=== PATIENT | male | born 2000 | race Hispanic/Latino ===

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

== ENCOUNTER 2022-04-08 14:36 | Emergency (ER) | payer OTHER, SELFPAY ==
[2022-04-08 15:23] LABS: Protime INR 0.98
[2022-04-08 15:32] LABS: BUN Blood Urea Nitrogen 12 mg/dL (7-18); Bicarbonate 29 mmol/L (21-32); Glucose Level 116 mg/dL (74-106); Potassium 3.6 mmol/L (3.5-5.1); Sodium Level 138 mmol/L (136-145)
[2022-04-08 15:39] LABS: Absolute Lymphocytes (CBC) 1.8 K/uL (0.7-4.9); Hematocrit 46.3 % (39.6-49.0); Lymphocytes % 27.4 % (15.3-44.8); MPV 7.5 fL (7.6-11.3); RBC Red Blood Cell Count 5.15 M/uL (4.33-5.43)
[2022-04-08 15:57] LABS: Troponin High Sensitivity < 3.0 pg/mL (<58.9)
--- NOTE | 2022-04-08 16:46 | EDPHYS ---
Physician Documentation [facility] Name: Prashant Glynn Age: 21 yrs Sex: Male : 2000 Arrival Date: 04/08/2022 Time: 14:37 Bed 19 Private MD: ED Physician José Miguel Benitez HPI: 04/08 15:45 This 21 yrs old Male presents to ER via Ambulatory with complaints of Cough, jh7 Chest Pain. 15:45 The patient or guardian reports cough, that is intermittent. Onset: The jh7 symptoms/episode began/occurred 3 week(s) ago. Patient complains of intermittent chest pain and cough for 3 weeks. He rates the pain at worst is a 5 out of 10. States that there are no alleviating or aggravating factors. States that he also felt dizzy this morning, but that it was likely due to him not eating. States he feels like he is congested. Also reports that he recently got over bronchitis.. Historical: - Allergies: 14:55 No Known Allergies; iw - Home Meds: 14:55 None [Active]; iw - PMHx: 14:55 None; iw - Immunization history:: Client reports receiving the 2nd dose of the Covid vaccine. - Social history:: Smoking status: Patient denies any tobacco usage or history of. ROS: 15:45 Constitutional: Negative for fever, chills, and weight loss, ENT: Negative for injury, jh7 pain, and discharge, Neck: Negative for injury, pain, and swelling, Respiratory: Negative for shortness of breath, cough, wheezing, and pleuritic chest pain, Abdomen/GI: Negative for abdominal pain, nausea, vomiting, diarrhea, and constipation, Back: Negative for injury and pain, Skin: Negative for injury, rash, and discoloration, Neuro: Negative for headache, weakness, numbness, tingling, and seizure, Psych: Negative for depression, anxiety, suicide ideation, homicidal ideation, and hallucinations. 15:45 Cardiovascular: Positive for chest pain. 15:45 All other systems are negative. Exam: 15:45 Constitutional: This is a well developed, well nourished patient who is awake, alert, jh7 and in no acute distress. Cardiovascular: Regular rate and rhythm with a normal S1 and S2. No gallops, murmurs, or rubs. Normal PMI, no JVD. No pulse deficits. Respiratory: Lungs have equal breath sounds bilaterally, clear to auscultation and percussion. No rales, rhonchi or wheezes noted. No increased work of breathing, no retractions or nasal flaring. Skin: Warm, dry with normal turgor. Normal color with no rashes, no lesions, and no evidence of cellulitis. Vital Signs: 14:52 BP 154 / 96; Pulse 101; Resp 18 S; Temp 99.1(TE); Pulse Ox 100% on R/A; Weight 68.04 iw kg; Height 5 ft. 10 in. (177.80 cm); 16:10 BP 147 / 94; Pulse 93; Resp 18; Pulse Ox 100% on R/A; billings 14:52 Body Mass Index 21.52 (68.04 kg, 177.80 cm) iw MDM: 15:35 Patient medically screened. 7 17:10 Differential Diagnosis: Bronchitis Upper Respiratory Infection Viral Syndrome jh7 Pneumonia. Data reviewed: vital signs, nurses notes, lab test result(s), EKG, radiologic studies, plain films. Data interpreted: Pulse oximetry: is 100 %. Interpretation: normal. Test interpretation: by ED physician or midlevel provider: ECG, plain radiologic studies. Counseling: I had a detailed discussion with the patient and/or guardian regarding: the historical points, exam findings, and any diagnostic results supporting the discharge/admit diagnosis. Special discussion: I discussed with the patient/guardian in detail that at this point there is no indication for admission to the hospital. It is understood, however, that if the symptoms persist or worsen the patient needs to return immediately for re-evaluation. ED course: The patient remained hemodynamically stable throughout the ER visit. He denied any pain at the time of discharge. He was advised to follow-up with his PCP, and if his symptoms return, or worsen that he is to return to the ER. The patient understood the plan of care.. 04/08 14:54 Order name: Basic Metabolic Panel; Complete Time: 16:42 iw 04/08 14:54 Order name: CBC with Diff; Complete Time: 15:43 iw 04/08 14:54 Order name: PT-INR; Complete Time: 15:42 iw 04/08 14:54 Order name: Troponin HS; Complete Time: 16:42 iw 04/08 14:54 Order name: XRAY Chest (1 view); Complete Time: 17:10 04/08 14:55 Order name: COVID-19/FLU A+B (Document "Date of Onset" if Symptomatic) 04/08 14:54 Order name: EKG; Complete Time: 14:54 04/08 14:54 Order name: Cardiac monitoring; Complete Time: 16:09 04/08 14:54 Order name: EKG - Nurse/Tech; Complete Time: 16:09 04/08 14:54 Order name: IV Saline Lock; Complete Time: 16:09 04/08 14:54 Order name: Labs collected and sent; Complete Time: 16:09 04/08 14:54 Order name: O2 Per Protocol; Complete Time: 16:09 04/08 14:54 Order name: O2 Sat Monitoring; Complete Time: 16:09 EC:12 Rate is 91 beats/min. Rhythm is regular. QRS [place] is Normal. DE interval is normal. T 7 waves are Normal. No ST changes noted. Clinical impression: Sinus arrythmia. Administered Medications: No medications were administered Disposition Summary: 04/08/22 16:46 Discharge Ordered Location: Home [facility] Problem: new [facility] Symptoms: have improved [facility] Condition: Stable [facility] Diagnosis - Acute bronchitis, unspecified [facility] - Chest pain, unspecified [facility] Followup: [facility] - With: Private Physician - When: 2 - 3 days - Reason: Recheck today's complaints Discharge Instructions: - Discharge Summary Sheet [facility] - Acute Bronchitis, Adult [facility] - Chest Wall Pain [facility] Forms: - Medication Reconciliation Form [facility] - Thank You Letter [facility] - Antibiotic Education [facility] - Prescription Opioid Use [facility] Prescriptions: - ProAir HFA 90 mcg/actuation Inhalation HFA aerosol inhaler - inhale 2 puff by INHALATION route every 6 hours As needed; 1 Inhaler; Refills: [facility] 0, Product Selection Permitted - Medrol (Derrick) 4 mg Oral Tablets, Dose Pack - take 1 tablet by ORAL route as directed - follow package instructions; 1 [facility] packet; Refills: 0, Product Selection Permitted Signatures: Dispatcher [employer] Tere Kwon, RN RN Crista Salinas FNP [employer]ACING [employer]UTTER [facility] Corrections: (The following items were deleted from the chart) 15:50 15:45 Patient complains of intermittent chest pain and cough for 3 weeks. He rates the jh7 pain at worst is a 5 out of 10. States that there are no alleviating or aggravating factors. States that he also felt dizzy this morning, but that it was likely due to him not eating. States he feels like he is congested.. jh7
--- NOTE | 2022-04-08 16:46 | ER ---
Nurse's Notes [facility] Name: Prashant Glynn Age: 21 yrs Sex: Male : 2000 Arrival Date: 04/08/2022 Time: 14:37 Bed 19 Private MD: Diagnosis: Acute bronchitis, unspecified;Chest pain, unspecified Presentation: 04/08 14:52 Chief complaint: Patient states: mid chest pain since today, has had a cough, no fever iw , pain is non radiating, feels like congestion. Coronavirus screen: Client presents with at least one sign or symptom that may indicate coronavirus-19. Ebola Screen: Patient negative for fever greater than or equal to 101.5 degrees Fahrenheit, and additional compatible Ebola Virus Disease symptoms Patient denies exposure to infectious person. Patient denies travel to an Ebola-affected area in the 21 days before illness onset. No symptoms or risks identified at this time. Initial Sepsis Screen: Does the patient meet any 2 criteria? No. Patient's initial sepsis screen is negative. Does the patient have a suspected source of infection? No. Patient's initial sepsis screen is negative. Risk Assessment: Do you want to hurt yourself or someone else? Patient reports no desire to harm self or others. Onset of symptoms was April 08, 2022. 14:52 Method Of Arrival: Ambulatory iw 14:52 Acuity: MEHRDAD 3 iw Triage Assessment: 15:38 General: Appears in no apparent distress. Behavior is calm, cooperative. Pain: billings Complains of pain in chest. Historical: - Allergies: 14:55 No Known Allergies; iw - Home Meds: 14:55 None [Active]; iw - PMHx: 14:55 None; iw - Immunization history:: Client reports receiving the 2nd dose of the Covid vaccine. - Social history:: Smoking status: Patient denies any tobacco usage or history of. Screenin:37 Abuse screen: Denies threats or abuse. Denies injuries from another. Nutritional billings screening: No deficits noted. Tuberculosis screening: No symptoms or risk factors identified. Fall Risk None identified. Assessment: 15:36 Pain: Complains of pain in chest Pain does not radiate. Pain began gradually. billings Cardiovascular: Reports chest pain. Respiratory: Reports cough that is pain with cough Pain is 6 out of 10 on a pain scale. Airway is patent Breath sounds are clear bilaterally. Vital Signs: 14:52 BP 154 / 96; Pulse 101; Resp 18 S; Temp 99.1(TE); Pulse Ox 100% on R/A; Weight 68.04 iw kg; Height 5 ft. 10 in. (177.80 cm); 16:10 BP 147 / 94; Pulse 93; Resp 18; Pulse Ox 100% on R/A; billings 14:52 Body Mass Index 21.52 (68.04 kg, 177.80 cm) ED Course: 14:37 Patient arrived in ED. am2 14:53 Triage completed. iw 14:55 Arm band placed on. 15:14 Crist[facility]inas F[facility] 15:14 José Miguel Benitez MD is Attending Physician. [facility] 15:34 Corrine Rossi, SENAIT is Primary Nurse. billings 15:37 Patient has correct armband on for positive identification. Bed in low position. billings monitor technician on. Pulse ox on. NIBP on. 15:37 No provider procedures requiring assistance completed. Patient maintains SpO2 billings saturation greater than 95% on room air. 15:44 Call light in reach. Side rails up X 1. Adult w/ patient. Warm blanket given. [facility] 16:09 Inserted saline lock: 20 gauge in left antecubital area, using aseptic technique. billings 16:41 XRAY Chest (1 view) In Process Unspecified. EDMS 17:00 IV discontinued, intact, Pressure dressing applied. billings Administered Medications: No medications were administered Outcome: 16:46 Discharge ordered by . [facility] 17:00 Discharged to home with family. billings 17:00 Condition: good 17:00 Discharge instructions given to patient, Prescriptions given X 2. 17:00 Patient left the ED. billings Signatures: Dispatcher [employer] EDMS Tere Poe RN RN Paige Lundy 5 Lina Maradiaga am2 Corrine Rossi RN RN Crista Salinas FNP FULL SERVICE SUPERVISOR [facility]
--- NOTE | 2022-04-08 16:48 | RAD REPORT ---
EXAM DESCRIPTION: RAD - Chest Single View - 04/08/2022 4:39 pm CLINICAL HISTORY: Cough Chest pain. COMPARISON: Chest Pa And Lat (2 Views) dated 02/25/2019 FINDINGS: Portable technique limits examination quality. The lungs are grossly clear. The heart is normal in size. No displaced fractures. IMPRESSION: No acute intrathoracic process suspected.
[2022-04-08 18:16] VITALS: TEMP 99.1; O2SAT 100
[2022-04-08 18:18] VITALS: BP 147/94
[2022-04-08 19:22] LABS: SARS-COV-2 RT PCR NEGATIVE (NEGATIVE)
--- NOTE | 2022-04-09 10:20 | EKG ---
Test Date: 2022-04-08 Test Time: 15:57:50 Repairer Shoe Sticks: FIORELLA MEASUREMENT RESULTS: Intervals: Rate: 91 WV: 136 QRSD: 88 QT: 360 QTc: 442 Lead: P: 66 WV: 136 QRS: 64 T: 49 INTERPRETIVE STATEMENTS: Sinus rhythm with marked sinus arrhythmia Otherwise normal ECG No previous ECG available for comparison Electronically Signed On 04-09-22 10:17:36 CDT by Torsten Evans
== END 2022-04-08 17:00 | disposition home or self-care (01) ==
LOC: ER 14:36
DX: J20.9 Acute bronchitis, unspecified (principal); Z20.822 Contact with and (suspected) exposure to COVID-19
CPT/HCPCS: 93005; 85025; 80048; 36415; 85610; 84484; 0240U; 71045; 99285

== ENCOUNTER 2022-05-15 05:56 | Emergency (ER) | payer OTHER ==
[2022-05-15] MEDS ORDERED: NA CHLORIDE 0.9% 1,000 ML ONE (06:19)
[2022-05-15] MEDS ORDERED: ASPIRIN 81 MG CHEWABLE TABLET ONE (06:19)
[2022-05-15] MEDS ORDERED: ONDANSETRON 4 MG/2 ML VIAL ONE (06:19)
[2022-05-15] MEDS ORDERED: KETOROLAC 30 MG/ML INJ ONE (06:19)
[2022-05-15 06:20] LABS: Absolute Lymphocytes (CBC) 1.9 K/uL (0.7-4.9); Hematocrit 46.8 % (39.6-49.0); Lymphocytes % 36.1 % (15.3-44.8); MPV 7.9 fL (7.6-11.3); RBC Red Blood Cell Count 5.14 M/uL (4.33-5.43)
[2022-05-15 06:37] LABS: Albumin 4.4 g/dL (3.4-5.0); Bilirubin Total 0.4 mg/dL (0.2-1.0); Potassium 3.8 mmol/L (3.5-5.1); Protein, Total 7.7 g/dL (6.4-8.2); Troponin High Sensitivity 3.1 pg/mL (<58.9)
--- NOTE | 2022-05-15 06:57 | EDPHYS ---
Physician Documentation [facility] [place] Name: Prashant Glynn Age: 22 yrs Sex: Male : 2000 Arrival Date: 05/15/2022 Time: 05:58 Bed 20 Private MD: ED Physician José Miguel Benitez HPI: 05/15 06:09 This 22 yrs old Male presents to ER via Unassigned with complaints of Chest zeny Pain. 06:09 The patient or guardian reports chest pain that is located primarily in the anterior zeny chest wall, right. The pain does not radiate. Associated signs and symptoms: Pertinent positives: None. The chest pain is described as aching, a pressure. Duration: The patient or guardian reports a single episode, that is still ongoing. Modifying factors: The symptoms are alleviated by application of supplemental oxygen, remaining still, the symptoms are aggravated by breathing, cough, movement, palpation of area. Severity of pain: At its worst the pain was moderate in the emergency department the pain is unchanged. The patient has not experienced similar symptoms in the past. Historical: - Allergies: 06:18 No Known Allergies; kd3 - Home Meds: 06:18 None [Active]; kd3 - PMHx: 06:18 None; kd3 - PSHx: 06:18 None; kd3 - Immunization history:: Adult Immunizations up to date, Client reports receiving the 2nd dose of the Covid vaccine. - Social history:: Smoking status: Patient denies any tobacco usage or history of. - Family history:: not pertinent. ROS: 06:09 Constitutional: Negative for fever, chills, and weight loss, Eyes: Negative for injury, zeny pain, redness, and discharge, ENT: Negative for injury, pain, and discharge, Neck: Negative for injury, pain, and swelling, Respiratory: Negative for shortness of breath, cough, wheezing, and pleuritic chest pain, Abdomen/GI: Negative for abdominal pain, nausea, vomiting, diarrhea, and constipation, Back: Negative for injury and pain, : Negative for injury, bleeding, discharge, and swelling, MS/Extremity: Negative for injury and deformity, Skin: Negative for injury, rash, and discoloration, Neuro: Negative for headache, weakness, numbness, tingling, and seizure. 06:09 Cardiovascular: Positive for chest pain, of the chest. Exam: 06:09 Constitutional: This is a well developed, well nourished patient who is awake, alert, zeny and in no acute distress. Head/Face: Normocephalic, atraumatic. Eyes: Pupils equal round and reactive to light, extra-ocular motions intact. Lids and lashes normal. Conjunctiva and sclera are non-icteric and not injected. Cornea within normal limits. Periorbital areas with no swelling, redness, or edema. ENT: Nares patent. No nasal discharge, no septal abnormalities noted. Tympanic membranes are normal and external auditory canals are clear. Oropharynx with no redness, swelling, or masses, exudates, or evidence of obstruction, uvula midline. Mucous membranes moist. Neck: Trachea midline, no thyromegaly or masses palpated, and no cervical lymphadenopathy. Supple, full range of motion without nuchal rigidity, or vertebral point tenderness. No Meningismus. Cardiovascular: Regular rate and rhythm with a normal S1 and S2. No gallops, murmurs, or rubs. Normal PMI, no JVD. No pulse deficits. Respiratory: Lungs have equal breath sounds bilaterally, clear to auscultation and percussion. No rales, rhonchi or wheezes noted. No increased work of breathing, no retractions or nasal flaring. Abdomen/GI: Soft, non-tender, with normal bowel sounds. No distension or tympany. No guarding or rebound. No evidence of tenderness throughout. Back: No spinal tenderness. No costovertebral tenderness. Full range of motion. Male : Normal genitalia with no discharge or lesions. Skin: Warm, dry with normal turgor. Normal color with no rashes, no lesions, and no evidence of cellulitis. MS/ Extremity: Pulses equal, no cyanosis. Neurovascular intact. Full, normal range of motion. Neuro: Awake and alert, GCS 15, oriented to person, place, time, and situation. Cranial nerves II-XII grossly intact. Motor strength 5/5 in all extremities. Sensory grossly intact. Cerebellar exam normal. Normal gait. Psych: Awake, alert, with orientation to person, place and time. Behavior, mood, and affect are within normal limits. 06:09 Chest/axilla: Inspection: normal, Palpation: tenderness, that is mild, that is moderate, of the right clavicle, left clavicle, anterior aspect of right upper chest and anterior aspect of left upper chest, Axilla: are normal, Lymph nodes: lymphadenopathy is not appreciated. 06:13 ECG was reviewed by the Attending Physician. [facility] Vital Signs: 06:14 BP 130 / 77; Pulse 97; Resp 17; Temp 98; Pulse Ox 100% on R/A; Weight 70.31 kg; Height kd3 5 ft. 10 in. (177.80 cm); Pain 3/10; 06:14 Body Mass Index 22.24 (70.31 kg, 177.80 cm) kd3 MDM: 06:01 Patient medically screened. zeny 06:11 Differential diagnosis: abnormal EKG, acute myocardial infarction, Cholelithiasis zeny hiatal hernia, pancreatitis, pulmonary embolus, stable angina, unstable angina. HEART Score:. Data reviewed: vital signs, nurses notes, lab test result(s), CBC, electrolytes, hepatic panel, EKG. Test interpretation: by ED physician or midlevel provider: ECG, plain radiologic studies. Counseling: I had a detailed discussion with the patient and/or guardian regarding: the historical points, exam findings, and any diagnostic results supporting the discharge/admit diagnosis, lab results, radiology results. 05/15 06:09 Order name: Comprehensive Metabolic Panel; Complete Time: 06:55 [facility] 05/15 06:09 Order name: CBC with Diff; Complete Time: 06:55 [facility] 05/15 06:09 Order name: Chest Pa And Lat (2 Views) XRAY [facility] 05/15 06:09 Order name: Troponin High Sensitivity; Complete Time: 06:55 [facility] 05/15 06:09 Order name: D-Dimer; Complete Time: 06:55 [facility] 05/15 06:09 Order name: EKG; Complete Time: 06:10 [facility] 05/15 06:09 Order name: EKG - Nurse/Tech; Complete Time: 06:10 [facility] EC:13 Rate is 93 beats/min. Rhythm is regular. QRS [place] is Normal. [place] interval is normal. QRS zeny interval is normal. QT interval is normal. No Q waves. T waves are Normal. No ST changes noted. Interpreted by me. Reviewed by me. Administered Medications: 06:19 Drug: NS 0.9% 1000 ml Route: IV; Rate: 1 bolus; Site: right antecubital; kd3 06:19 Drug: Ketorolac 30 mg Route: IVP; Site: right antecubital; kd3 06:19 Drug: Zofran (Ondansetron) 4 mg Route: IVP; Site: right antecubital; kd3 06:20 Drug: Aspirin 81 mg Route: PO; kd3 Disposition Summary: 05/15/22 06:57 Discharge Ordered Location: Home zeny Problem: new zeny Symptoms: have improved zeny Condition: Stable zeny Diagnosis - Chest pain, unspecified - wall zeny - Costochondritis zeny Followup: zeny - With: Private Physician - When: 2 - 3 days - Reason: Recheck today's complaints, Continuance of care, Re-evaluation by your physician Discharge Instructions: - Discharge Summary Sheet zeny - Chest Wall Pain zeny - Costochondritis zeny - Costochondritis, [id number] zeny - Chest Wall Pain, Elsk-tf-Maty zeny Forms: - Medication Reconciliation Form zeny - Thank You Letter zeny - Antibiotic Education zeny - Prescription Opioid Use [facility] Prescriptions: - Ibuprofen 600 mg Oral Tablet - take 1 tablet by ORAL route every 6 hours As needed take with food; 30 tablet; [facility] Refills: 0, Product Selection Permitted - Pepcid 20 mg Oral Tablet - take 1 tablet by ORAL route every 12 hours for 10 days; 20 tablet; Refills: 0, [facility] Product Selection Permitted Signatures: Dispatcher [employer] José Miguel Grove MD MD cha Doucette, Kyli RN RN kd3 Maribell Sanders RN RN vc1
--- NOTE | 2022-05-15 06:57 | ER ---
Nurse's Notes [facility] Name: Prashant Glynn Age: 22 yrs Sex: Male : 2000 Arrival Date: 05/15/2022 Time: 05:58 Bed 20 Private MD: Diagnosis: Chest pain, unspecified-wall;Costochondritis Presentation: 05/15 06:19 Chief complaint: Patient states: "I woke up around 0445 with my chest hurting.". vc1 06:20 Initial Sepsis Screen: Does the patient meet any 2 criteria? No. Patient's initial kd3 sepsis screen is negative. Does the patient have a suspected source of infection? No. Patient's initial sepsis screen is negative. 06:21 Coronavirus screen: Vaccine status: Patient reports receiving the 2nd dose of the covid vc1 vaccine. Moderna. Ebola Screen: No symptoms or risks identified at this time. Risk Assessment: Do you want to hurt yourself or someone else? Patient reports no desire to harm self or others. Onset of symptoms was May 15, 2022 at 04:45. 06:21 Method Of Arrival: Ambulatory vc1 06:21 Acuity: MEHRDAD 3 vc1 Historical: - Allergies: 06:18 No Known Allergies; kd3 - Home Meds: 06:18 None [Active]; kd3 - PMHx: 06:18 None; kd3 - PSHx: 06:18 None; kd3 - Immunization history:: Adult Immunizations up to date, Client reports receiving the 2nd dose of the Covid vaccine. - Social history:: Smoking status: Patient denies any tobacco usage or history of. - Family history:: not pertinent. Screenin:18 Abuse screen: Denies threats or abuse. Denies injuries from another. Nutritional kd3 screening: No deficits noted. Tuberculosis screening: No symptoms or risk factors identified. Fall Risk IV access (20 points). Assessment: 06:17 General: Appears in no apparent distress. Behavior is calm, cooperative. Pain: kd3 Complains of pain in anterior aspect of left upper chest and anterior aspect of right upper chest and left clavicle and right clavicle and chest Pain does not radiate. Pain began gradually. Neuro: Level of Consciousness is awake, alert, obeys commands, Oriented to person, place, time, situation. Cardiovascular: Patient's skin is warm and dry. Rhythm is regular. Respiratory: Airway is patent Trachea midline Respiratory effort is even, unlabored, Respiratory pattern is regular, symmetrical. 06:23 Reassessment: pt taken to Xray. kd3 Vital Signs: 06:14 BP 130 / 77; Pulse 97; Resp 17; Temp 98; Pulse Ox 100% on R/A; Weight 70.31 kg; Height kd3 5 ft. 10 in. (177.80 cm); Pain 3/10; 06:14 Body Mass Index 22.24 (70.31 kg, 177.80 cm) kd3 ED Course: 05:58 Patient arrived in ED. bp1 06:01 José Miguel Benitez MD is Attending Physician. zeny 06:10 Paola Mansfield, SENAIT is Primary Nurse. kd3 06:20 No provider procedures requiring assistance completed. Inserted saline lock: 20 gauge kd3 in right antecubital area, using aseptic technique. Blood collected. Patient maintains SpO2 saturation greater than 95% on room air. 06:21 Triage completed. vc1 06:22 Arm band placed on right wrist. EKG completed in triage. Results shown to MD. vc1 06:22 Patient has correct armband on for positive identification. Client placed on continuous vc1 cardiac and pulse oximetry monitoring. NIBP monitoring applied. 06:31 Chest Pa And Lat (2 Views) XRAY In Process Unspecified. EDMS 07:09 IV discontinued, intact, bleeding controlled, No redness/swelling at site. Pressure jh6 dressing applied. Administered Medications: 06:19 Drug: NS 0.9% 1000 ml Route: IV; Rate: 1 bolus; Site: right antecubital; kd3 06:19 Drug: Ketorolac 30 mg Route: IVP; Site: right antecubital; kd3 06:19 Drug: Zofran (Ondansetron) 4 mg Route: IVP; Site: right antecubital; kd3 06:20 Drug: Aspirin 81 mg Route: PO; kd3 Medication: 06:23 VIS not applicable for this client. kd3 Outcome: 06:57 Discharge ordered by . [facility] 07:09 Discharged to home ambulatory. jh6 07:09 Condition: improved 07:09 Discharge instructions given to patient, family, Instructed on discharge instructions, follow up and referral plans. Demonstrated understanding of instructions, follow-up care, medications, Prescriptions given X 2. 07:10 Patient left the ED. jh6 Signatures: Dispatcher [employer] EDID José Miguel Benitez MD MD cha Paniauga, Brittany bp1 Doucette, Kyli RN RN kd3 Crista Guevara RN RN jh6 Maribell Sanders RN RN vc1
--- NOTE | 2022-05-15 07:12 | RAD REPORT ---
EXAM DESCRIPTION: RAD - Chest Pa And Lat (2 Views) - 05/15/2022 6:29 am CLINICAL HISTORY: CHEST PAIN COMPARISON: Portable April 08; two view chest January 2019 TECHNIQUE: Frontal and lateral views of the chest were obtained. FINDINGS: The lungs are clear. Interstitial pattern matches comparison. No hilar mass or lymphadeno flori evident. Heart size is normal and central vasculature is within normal limits. No pleural effu cristian or pneumothorax seen. No acute bony finding noted. No aortic abnormality. IMPRESSION: No acute cardiopulmonary process. No significant change from comparison study.
[2022-05-15 07:16] VITALS: BP 130/77; TEMP 98; O2SAT 100
--- NOTE | 2022-05-15 08:05 | EKG ---
Test Date: 2022-05-15 Test Time: 06:04:23 Assistant Research Scientist: MIAN MEASUREMENT RESULTS: Intervals: Rate: 93 SC: 146 QRSD: 84 QT: 338 QTc: 420 Pound: P: 78 SC: 146 QRS: 80 T: 80 INTERPRETIVE STATEMENTS: Sinus rhythm with marked sinus arrhythmia Otherwise normal ECG Compared to ECG 04/08/2022 15:57:50 No significant changes Electronically Signed On 05-15-22 08:05:19 CDT by Torsten Evans
== END 2022-05-15 07:10 | disposition home or self-care (01) ==
LOC: ER 05:56
DX: M94.0 Chondrocostal junction syndrome [Tietze] (principal)
CPT/HCPCS: 93005; 85025; 36415; 85379; 84484; 80053; 71046; J7030; J2405; 96374; 96375; 99284